=== PATIENT | male | born 1930 | race Caucasian/White ===

== ENCOUNTER 2016-07-18 18:59 | Emergency (ER) | payer MEDICARE, BC, OTHER ==
[2016-07-18] MEDS ORDERED: Lidocaine 2% Jelly 10 ML Urojet MUCMEM ONE (19:32)
--- NOTE | 2016-07-18 19:32 | EDM.PDOC ---
ED HPI RENAL/ - General Chief Complaint: Genitourinary Problem Stated Complaint: CATHEDER NOT WORKING Time Seen by Provider: 07/18/16 20:30 Source of Information: Reports: Patient History Limitations: Reports: No limitations - History of Present Illness INITIAL COMMENTS - FREE TEXT/NARRATIVE: Indwelling catheter with c/o not drianing. Bladder feels full, notes drainage has been thicker past couple of day. no fevers or other symptoms. Lat replaced 2 -3 weeks ago. Patient notes increased catheter pain with last replacement. - Related Data Allergies/ADRs: Allergies Allergy/AdvReac Type Severity Reaction Status Date / Time No Known Allergies Allergy Verified 07/18/16 19:06 Home Meds: Home Meds Calcium Carbonate [Calcium] 500 mg PO DAILY 02/27/16 [History] Enzalutamide [Xtandi] 40 mg PO DAILY 02/27/16 [History] Lutein/Minerals/Vit A,C & E [I-Meggan] 1 tab PO DAILY 02/27/16 [History] Tamsulosin [Flomax] 0.4 mg PO DAILY 02/27/16 [History] Past Medical History HEENT History: Reports: Hard of hearing, Other (see below) Other HEENT History: hearing aid. Genitourinary History: Reports: Prostate disorder, Other (see below) Other Genitourinary History: denise cath. 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 ED EXAM, RENAL/ - Physical Exam Exam: See Below Exam Limited By: No limitations General Appearance: alert, mild distress Eye Exam: bilateral eye: EOMI Ears: normal external exam Nose: normal inspection Throat/Mouth: Normal inspection Head: atraumatic Respiratory/Chest: no respiratory distress Cardiovascular: regular rate, rhythm GI/Abdominal: normal bowel sounds, soft (Male) Exam: Other (no suprapubic tenderness. Indwelling catheter attached to leg bag, small amount concentrated urine in bag, thick cloudy in tubing. no bladder distension.) Extremities: normal inspection Neurological: alert, oriented Psychiatric: normal affect Skin Exam: Warm, Dry, Pallor Course - Vital Signs Last Recorded V/S: Last Vital Signs Temp 97.1 F 07/18/16 20:06 Pulse 94 07/18/16 20:06 Resp 16 07/18/16 20:06 BP 135/71 07/18/16 20:06 Pulse Ox 96 07/18/16 20:06 - Orders/Labs/Meds Meds: Medications Discontinued Medications Generic Name Dose Route Start Last Admin Trade Name Freq PRN Reason Stop Dose Admin Lidocaine HCl 10 ml 07/18/16 19:32 07/18/16 19:47 Xylocaine 2% Jelly MUCMEM 07/18/16 19:33 10 ml ONETIME ONE Administration - Re-Assessments/Exams Free Text/Narrative Re-Assessment/Exam: 07/19/16 04:50 Denise replaced. Immedicate drainage. Bood tinged urine. Minimal sediment. Bladder scan 80-150 ml in bladder. Departure - Departure Time of Disposition: 20:39 Disposition: Home, Self-Care 01 Condition: good Clinical Impression: Retention of urine Denise catheter problem Qualifiers: Encounter type: subsequent encounter Qualified Code(s): T83.9XXD - Unspecified complication of genitourinary prosthetic device, implant and graft, subsequent encounter Referrals: PCP,None [Primary Care Provider] - Forms: ED Department Discharge Additional Instructions: fluids recheck in clinic this week, follwo up sooner if fever, problems with catheter draining
[2016-07-18 20:08] VITALS: BP 135/71
== END 2016-07-18 20:46 | disposition home or self-care (01) ==
LOC: DL.ED 18:59
DX: T83.9XXD Unspecified complication of genitourinary prosthetic device, implant and graft, subsequent encounter (principal); Z79.899 Other long term (current) drug therapy; Z90.49 Acquired absence of other specified parts of digestive tract
CPT/HCPCS: 51701; 99283

== ENCOUNTER 2016-07-29 13:19 | Emergency (ER) | payer MEDICARE, BC, OTHER ==
[2016-07-29] MEDS ORDERED: Lidocaine 2% Jelly 10 ML Urojet ONE (13:53)
[2016-07-29] MEDS ORDERED: Lidocaine 2% Jelly 10 ML Urojet MUCMEM ONE (14:19)
--- NOTE | 2016-07-29 14:24 | EDM.PDOC ---
ED HPI RENAL/ - General Chief Complaint: General Stated Complaint: [id number] Catheter Time Seen by Provider: 07/29/16 14:20 Source of Information: Reports: Patient History Limitations: Reports: No limitations - History of Present Illness INITIAL COMMENTS - FREE TEXT/NARRATIVE: 86 yo white male c/o plugged urinary denise. PMHx. Prostate cancer. Pt. states this is the 4thtime for a plugged denise. Pt. denies fever or chills Symptom Onset Date: 07/28/16 Symptom Onset Time: 18:00 Timing/Duration: Reports: Hour(s): Location: Reports: suprapubic Quality: Reports: fullness Severity: moderate Improves with: Reports: urinating Context: Reports: other (plugged urinary denise due to blood clots) Associated Symptoms: Reports: unable to urinate, blood in urine - Related Data Allergies/ADRs: Allergies Allergy/AdvReac Type Severity Reaction Status Date / Time No Known Allergies Allergy Verified 07/18/16 19:06 Home Meds: Home Meds Calcium Carbonate [Calcium] 500 mg PO DAILY 02/27/16 [History] Enzalutamide [Xtandi] 40 mg PO DAILY 02/27/16 [History] Lutein/Minerals/Vit A,C & E [I-Meggan] 1 tab PO DAILY 02/27/16 [History] Tamsulosin [Flomax] 0.4 mg PO DAILY 02/27/16 [History] Past Medical History HEENT History: Reports: Hard of hearing, Other (see below) Other HEENT History: hearing aid. Genitourinary History: Reports: Prostate disorder, Other (see below) Other Genitourinary History: denise cath. 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 - Infectious Disease History Infectious Disease History: Reports: Chicken pox, Measles, Mumps - Past Surgical History GI Surgical History: Reports: Appendectomy, Cholecystectomy Male Surgical History: Reports: Prostate Biopsy Social & Family History - Family History Family Medical History: Noncontributory - Tobacco Use Smoking Status *Q: Never Smoker - Caffeine Use Caffeine Use: Reports: Coffee - Recreational Drug Use Recreational Drug Use: No ED ROS GENERAL - Review of Systems Review Of Systems: See Below Constitutional: Reports: weakness HEENT: Reports: No symptoms Respiratory: Reports: No Symptoms Cardiovascular: Reports: No symptoms Endocrine: Reports: no symptoms GI/Abdominal: Reports: No symptoms : Reports: other (denise inplaced w/ clots) Skin: Reports: no symptoms Neurological: Reports: No Symptoms Psychiatric: Reports: No symptoms Hematologic/Lymphatic: Reports: no symptoms Immunologic: Reports: no symptoms ED EXAM, RENAL/ - Physical Exam Exam: See Below Exam Limited By: No limitations General Appearance: alert, no apparent distress, cachetic Eye Exam: bilateral eye: PERRL Ears: normal external exam Nose: normal inspection Throat/Mouth: Normal inspection Head: atraumatic Neck: normal inspection Respiratory/Chest: no respiratory distress, lungs clear Cardiovascular: normal peripheral pulses, regular rate, rhythm GI/Abdominal: normal bowel sounds, soft (Male) Exam: Other (urinary denise in place w/ pink colored urine) Back Exam: normal inspection Extremities: normal inspection Neurological: alert, oriented, CN II-XII intact Psychiatric: normal affect, normal mood Skin Exam: Warm, Dry Lymphatic: no adenopathy Course - Orders/Labs/Meds Orders: Active Orders 24 hr Category Date Time Status CULTURE URINE [RM] Stat Lab 07/29/16 14:56 Uncollected Labs: Laboratory Tests 07/29/16 Range/Units 14:09 Urine Color Anitra (YELLOW) Urine Appearance Cloudy (CLEAR) Urine pH >= 9.0 (5.0-9.0) Ur Specific [place] 1.020 (1.005-1.030) Urine Protein >=300 H (NEGATIVE) Urine Glucose (UA) Negative (NEGATIVE) Urine Ketones Negative (NEGATIVE) Urine Occult Blood Large H (NEGATIVE) Urine Nitrite Positive H (NEGATIVE) Urine Bilirubin Negative (NEGATIVE) Urine Urobilinogen 1.0 (0.2-1.0) mg/dL Ur Leukocyte Esterase Small H (NEGATIVE) Urine RBC >100 H /HPF Urine WBC 75-100 H (0-5/HPF) /HPF Ur Epithelial Cells Not seen /HPF Urine Bacteria Many H (0-FEW/HPF) /HPF Meds: Medications Discontinued Medications Generic Name Dose Route Start Last Admin Trade Name Freq PRN Reason Stop Dose Admin Levofloxacin 500 mg 07/29/16 14:56 Levaquin PO 07/29/16 14:57 ONETIME ONE Lidocaine HCl Confirm 07/29/16 13:53 07/29/16 14:47 Xylocaine 2% Jelly Administered 07/29/16 13:54 10 ml Dose Administration 10 ml .ROUTE .STK-MED ONE Lidocaine HCl 10 ml 07/29/16 14:19 07/29/16 14:47 Xylocaine 2% Jelly MUCMEM 07/29/16 14:20 Not Given ONETIME ONE Departure - Departure Time of Disposition: 15:01 Disposition: Home, Self-Care 01 Condition: good Clinical Impression: UTI (urinary tract infection) due to urinary indwelling catheter Qualifiers: Indwelling urinary catheter type: indwelling urethral catheter Encounter type: subsequent encounter Qualified Code(s): T83.511D - Infection and inflammatory reaction due to indwelling urethral catheter, subsequent encounter Denise catheter problem Qualifiers: Encounter type: subsequent encounter Qualified Code(s): T83.9XXD - Unspecified complication of genitourinary prosthetic device, implant and graft, subsequent encounter Clinical Impression: (Ruled Out): UTI (urinary tract infection) Instructions: Urinary Tract Infection, Adult, [id number], Denise Catheter Care , Adult Additional Instructions: Rest Increase intake of Water / Cranberry Juice Take the oral antibiotic as prescribed and complete: Levaquin 500mg QD # 6 F/U w/ PCP for urine recheck in 5 days - My Orders Last 24 Hours: My Active Orders 07/29/16 14:56 CULTURE URINE [RM] Stat - Assessment/Plan Last 24 Hours: My Active Orders 07/29/16 14:56 CULTURE URINE [RM] Stat
[2016-07-29] MEDS ORDERED: Levofloxacin 500 MG Tab PO ONE (14:56)
[2016-07-29 15:52] VITALS: BP 125/73
== END 2016-07-29 15:30 | disposition home or self-care (01) ==
LOC: DL.ED 13:19
DX: T83.511D Infection and inflammatory reaction due to indwelling urethral catheter, subsequent encounter (principal); Z79.899 Other long term (current) drug therapy; Z90.49 Acquired absence of other specified parts of digestive tract
CPT/HCPCS: 51702; 81001; 87086; 99283; A9270

== ENCOUNTER 2016-08-14 08:47 | Inpatient (IN) | payer MEDICARE, BC, OTHER ==
[2016-08-14] MEDS ORDERED: Sodium Chloride 0.9% 1,000 ML IV ONE (09:09)
--- NOTE | 2016-08-14 09:16 | EDM.PDOC ---
ED HPI GENERAL MEDICAL PROBLEM - General Chief Complaint: General Stated Complaint: CATH. PLUGGED Time Seen by Provider: 08/14/16 08:55 Source of Information: Reports: Patient History Limitations: Reports: No limitations - History of Present Illness INITIAL COMMENTS - FREE TEXT/NARRATIVE: This 86 yo male patient reports to the ED with a 2 day history of lower abdominal pain and low urine output. The patient reports he has been having lower abdominal pain and diarrhea over the past 2 days. The patient reports he is currently being treated for prostate cancer by Dr. Melvin. The patient also reports a history of leukemia. The patient's reports the patient has not been feeling well since the last round of chemo. The patient reports he has not been eating much, but has been drinking "plenty" of water. Onset: gradual Onset Date: 08/12/16 Duration: Day(s): (2), Constant, Getting worse Location: Reports: abdomen Quality: Reports: Ache, Dull Severity: moderate Improves with: Reports: None Worsens with: Reports: None Associated Symptoms: Reports: nausea/vomiting Lower Pelvic Pain Score (Numeric/FACES): 2 - Related Data Allergies Allergy/AdvReac Type Severity Reaction Status Date / Time No Known Allergies Allergy Verified 07/29/16 15:52 Home Meds: Home Meds Calcium Carbonate [Calcium] 500 mg PO DAILY 02/27/16 [History] Lutein/Minerals/Vit A,C & E [I-Meggan] 1 tab PO DAILY 02/27/16 [History] Tamsulosin [Flomax] 0.4 mg PO DAILY 02/27/16 [History] Levofloxacin [Levofloxacin] 500 mg PO DAILY 08/14/16 [History] Past Medical History HEENT History: Reports: Hard of hearing, Other (see below) Other HEENT History: hearing aid. Genitourinary History: Reports: Prostate disorder, Other (see below) Other Genitourinary History: denise cath. 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 ED EXAM, GENERAL - Physical Exam Exam: See Below Exam Limited By: No limitations General Appearance: alert, WD/WN, moderate distress Eye Exam: bilateral eye: EOMI, normal inspection, PERRL Ears: normal external exam, hearing grossly normal, other (Bilateral hearing aids) Nose: normal inspection, normal mucosa, no blood Throat/Mouth: Normal inspection, Normal lips, Normal teeth, Normal gums, Normal oropharynx, Normal voice, No airway compromise Head: atraumatic, normocephalic Neck: normal inspection, supple, non-tender, full range of motion Respiratory/Chest: no respiratory distress, lungs clear, normal breath sounds, no accessory muscle use, chest non-tender Cardiovascular: normal peripheral pulses, regular rate, rhythm, no edema, no gallop, no JVD, no murmur, no rub GI/Abdominal: soft, tender (generalized tenderness to the right side (RUQ, RLQ and epigastric)) (Male) Exam: Deferred Rectal (Males) Exam: Deferred Extremities: normal inspection, normal range of motion, non-tender, normal capillary refill, no pedal edema Neurological: alert, oriented, CN II-XII intact, normal cognition, normal gait, no motor/sensory deficits Psychiatric: normal affect, normal mood Skin Exam: Warm, Dry, Intact, Normal color, No rash Lymphatic: no adenopathy Course - Vital Signs Last Recorded V/S: Last Vital Signs Temp 35.3 C 08/14/16 08:55 Pulse 84 08/14/16 08:55 Resp 18 08/14/16 08:55 BP 122/64 08/14/16 08:55 Pulse Ox 98 08/14/16 08:55 - Orders/Labs/Meds Orders: Active Orders 24 hr Category Date Time Status Sodium Chloride 0.9% [Normal Saline] 1,000 ml Med 08/14/16 09:09 Active IV .BOLUS Medication Orders Sodium Chloride (Normal Saline) 1,000 mls @ 250 mls/hr IV .BOLUS ONE Stop: 08/14/16 13:08 Last Admin: 08/14/16 09:31 Dose: 250 mls/hr Labs: Laboratory Tests 08/14/16 08/14/16 08/14/16 Range/Units 09:18 09:18 09:18 WBC 11.6 H (5.0-10.0) 10^3/uL RBC 2.49 L (4.6-6.2) 10^6/uL Hgb 8.6 L (14.0-18.0) g/dL Hct 26.4 L (40.0-54.0) % MCV 106.0 H (80-100) fL MCH 34.5 H (27.0-34.0) pg MCHC 32.6 L (33.0-35.0) g/dL Plt Count 53 L (150-450) 10^3/uL Neut % (Auto) 45.0 (42.2-75.2) % Lymph % (Auto) 52.1 H (20.5-50.1) % [place] % (Auto) 2.7 (2-8) % Eos % (Auto) 0.1 L (1.0-3.0) % Baso % (Auto) 0.1 (0.0-1.0) % Add Manual Diff Yes Neutrophils % (Manual) 32 % Band Neutrophils % 8 % Lymphocytes % (Manual) 56 % Atypical Lymphs % 2 % Monocytes % (Manual) 2 % Tear Drop Cells 2+ moderate [place] Cells 1+ slight Sodium 129 L (135-145) mmol/L Potassium 4.0 (3.6-5.0) mmol/L Chloride 98 L (101-111) mmol/L Carbon Dioxide 23.0 (21.0-31.0) mmol/L Anion Gap 12.0 BUN 14 (7-18) mg/dL Creatinine 1.0 (0.6-1.3) mg/dL Est Cr Clr Drug Dosing 46.78 mL/min Estimated GFR (MDRD) > 60 BUN/Creatinine Ratio 14.00 Glucose 109 H (74-105) mg/dL Calcium 7.5 L (8.4-10.2) mg/dl Magnesium 1.9 (1.8-2.5) mg/dL Total Bilirubin 1.3 H (0.2-1.0) mg/dL AST 31 (10-42) IU/L ALT 12 (10-60) IU/L Alkaline Phosphatase 56 (42-121) IU/L Total Protein 4.4 L (6.7-8.2) g/dl Albumin 2.5 L (3.2-5.5) g/dl Globulin 1.9 Albumin/Globulin Ratio 1.32 Urine Color (YELLOW) Urine Appearance (CLEAR) Urine pH (5.0-9.0) Ur Specific [place] (1.005-1.030) Urine Protein (NEGATIVE) Urine Glucose (UA) (NEGATIVE) Urine Ketones (NEGATIVE) Urine Occult Blood (NEGATIVE) Urine Nitrite (NEGATIVE) Urine Bilirubin (NEGATIVE) Urine Urobilinogen (0.2-1.0) mg/dL Ur Leukocyte Esterase (NEGATIVE) Urine RBC /HPF Urine WBC (0-5/HPF) /HPF Ur Epithelial Cells /HPF Calcium Phosphate Cryst Triple Phos Crystals /HPF Amorphous Sediment (0/HPF) /HPF Urine Bacteria (0-FEW/HPF) /HPF 08/14/16 Range/Units 09:45 WBC (5.0-10.0) 10^3/uL RBC (4.6-6.2) 10^6/uL Hgb (14.0-18.0) g/dL Hct (40.0-54.0) % MCV (80-100) fL MCH (27.0-34.0) pg MCHC (33.0-35.0) g/dL Plt Count (150-450) 10^3/uL Neut % (Auto) (42.2-75.2) % Lymph % (Auto) (20.5-50.1) % [place] % (Auto) (2-8) % Eos % (Auto) (1.0-3.0) % Baso % (Auto) (0.0-1.0) % Add Manual Diff Neutrophils % (Manual) % Band Neutrophils % % Lymphocytes % (Manual) % Atypical Lymphs % % Monocytes % (Manual) % Tear Drop Cells [place] Cells Sodium (135-145) mmol/L Potassium (3.6-5.0) mmol/L Chloride (101-111) mmol/L Carbon Dioxide (21.0-31.0) mmol/L Anion Gap BUN (7-18) mg/dL Creatinine (0.6-1.3) mg/dL Est Cr Clr Drug Dosing mL/min Estimated GFR (MDRD) BUN/Creatinine Ratio Glucose (74-105) mg/dL Calcium (8.4-10.2) mg/dl Magnesium (1.8-2.5) mg/dL Total Bilirubin (0.2-1.0) mg/dL AST (10-42) IU/L ALT (10-60) IU/L Alkaline Phosphatase (42-121) IU/L Total Protein (6.7-8.2) g/dl Albumin (3.2-5.5) g/dl Globulin Albumin/Globulin Ratio Urine Color Brown (YELLOW) Urine Appearance Cloudy (CLEAR) Urine pH >= 9.0 (5.0-9.0) Ur Specific [place] 1.010 (1.005-1.030) Urine Protein >=300 H (NEGATIVE) Urine Glucose (UA) Negative (NEGATIVE) Urine Ketones Negative (NEGATIVE) Urine Occult Blood Large H (NEGATIVE) Urine Nitrite Negative (NEGATIVE) Urine Bilirubin Small H (NEGATIVE) Urine Urobilinogen 1.0 (0.2-1.0) mg/dL Ur Leukocyte Esterase Moderate H (NEGATIVE) Urine RBC 50-75 H /HPF Urine WBC 30-40 H (0-5/HPF) /HPF Ur Epithelial Cells Rare /HPF Calcium Phosphate Cryst Moderate H Triple Phos Crystals Moderate H /HPF Amorphous Sediment Many (0/HPF) /HPF Urine Bacteria Moderate H (0-FEW/HPF) /HPF Meds: Medications Generic Name Dose Route Start Last Admin Trade Name Freq PRN Reason Stop Dose Admin Sodium Chloride 1,000 mls @ 250 mls/hr 08/14/16 09:09 08/14/16 09:31 Normal Saline IV 08/14/16 13:08 250 mls/hr .BOLUS ONE Administration Discontinued Medications Generic Name Dose Route Start Last Admin Trade Name Freq PRN Reason Stop Dose Admin Lidocaine HCl 10 ml 08/14/16 09:24 08/14/16 09:31 Xylocaine 2% Jelly MUCMEM 08/14/16 09:25 10 ml ONETIME ONE Administration Departure - Departure Time of Disposition: 10:24 Disposition: Admitted As Inpatient 67 Condition: fair Clinical Impression: Weakness, Hyponatremia Diarrhea Qualifiers: Diarrhea type: unspecified type Qualified Code(s): R19.7 - Diarrhea, unspecified UTI (urinary tract infection) Qualifiers: Urinary tract infection type: catheter-associated UTI Indwelling urinary catheter type: indwelling urethral catheter Encounter type: initial encounter Qualified Code(s): T83.511A - Infection and inflammatory reaction due to indwelling urethral catheter, initial encounter; N39.0 - Urinary tract infection , site not specified Forms: ED Department Discharge Care Plan Goals: Discussed the history, examination and lab results with Dr. Duvall (Hospitalist with [facility] in [place]). Dr. Duvall accepted the patient for continued evaluation and management as an observation patient. - My Orders Last 24 Hours: My Active Orders 08/14/16 09:09 Sodium Chloride 0.9% [Normal Saline] 1,000 ml IV .BOLUS - Assessment/Plan Last 24 Hours: My Active Orders 08/14/16 09:09 Sodium Chloride 0.9% [Normal Saline] 1,000 ml IV .BOLUS
[2016-08-14] MEDS ORDERED: Lidocaine 2% Jelly 10 ML Urojet MUCMEM ONE (09:24)
[2016-08-14 09:53] LABS: CHLORIDE,CL 98 mmol/L (101-111); SODIUM,NA 129 mmol/L (135-145)
[2016-08-14] MEDS ORDERED: Loperamide 2 MG Cap PO PRN (11:10)
[2016-08-14] MEDS ORDERED: Acetaminophen/HYDROcodone 325-5 MG Tab PO PRN (11:11)
[2016-08-14] MEDS ORDERED: Sodium Chloride 0.9% 10 ML Syringe FLUSH PRN (11:12)
[2016-08-14] MEDS ORDERED: Ondansetron 4 MG/2 ML SDV IVPUSH PRN (11:12)
[2016-08-14] MEDS ORDERED: Acetaminophen 325 MG Tab PO PRN (11:12)
[2016-08-14] MEDS ORDERED: Ondansetron 4 MG Tab.DIS PO PRN (11:12)
[2016-08-14] MEDS ORDERED: Zolpidem 5 MG Tab PO PRN (11:12)
--- NOTE | 2016-08-14 11:23 | PCM.HP ---
H&P History of Present Illness - General Date of Service: 08/14/16 Admit Problem/Dx: Admission Diagnosis/Problem Admission Diagnosis/Problem Hyponatremia Source of Information: Patient, Family - History of Present Illness Initial Comments - Free Text/Narative: the patient is an 86-year-old gentleman with a history of CLL and prostate cancer The patient has been receiving chemotherapy from Dr. Desouza He has been living at home with Last chemotherapy about a week ago He has been complaining of increasing weakness in the past 3 days before admission The weakness has been moderate, progressive this has been associated with diarrhea, decreased appetite. he has been trying to drink of water the patient has chronic indwelling Denise catheter with on and off hematuria, had previous episodes of obstruction. The patient was unable to pass urine through the urinary catheter and came to the emergency room the patient has been started on levofloxacin for a presumed urinary tract infection a few days prior to admission the patient denies fever, no chest pain Lower Pelvic Pain Score (Numeric/FACES): 2 - Related Data Allergies/Adverse Reactions: Allergies Allergy/AdvReac Type Severity Reaction Status Date / Time No Known Allergies Allergy Verified 08/14/16 11:13 Home Medications: Home Meds Calcium Carbonate [Calcium] 500 mg PO DAILY 02/27/16 [History] Lutein/Minerals/Vit A,C & E [I-Meggan] 1 tab PO DAILY 02/27/16 [History] Levofloxacin [Levofloxacin] 500 mg PO DAILY 08/14/16 [History] Past Medical History HEENT History: Reports: Hard of hearing, Other (see below) Other HEENT History: hearing aid. Genitourinary History: Reports: Prostate disorder, Other (see below) Other Genitourinary History: denise cath. 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 - Infectious Disease History Infectious Disease History: Reports: Chicken pox, Measles, Mumps - Past Surgical History GI Surgical History: Reports: Appendectomy, Cholecystectomy Male Surgical History: Reports: Prostate Biopsy Social & Family History - Family History Family Medical History: Noncontributory - Tobacco Use Smoking Status *Q: Never Smoker - Caffeine Use Caffeine Use: Reports: Coffee - Recreational Drug Use Recreational Drug Use: No H&P Review of Systems - Review of Systems: Review Of Systems: See Below General: Denies: fever, chills Pulmonary: Denies: Shortness of Breath, Wheezing Cardiovascular: Denies: chest pain Gastrointestinal: Reports: Diarrhea, Nausea. Denies: Abdominal pain, Black stool, Bloody stool, Hematemesis, Melena Genitourinary: Reports: retention, other (hematuria) Psychiatric: Denies: confusion Neurological: Denies: Dizziness Exam - Exam Exam: See Below - Vital Signs Vital Signs: Last Vital Signs Temp 35.3 C 08/14/16 08:55 Pulse 84 08/14/16 08:55 Resp 18 08/14/16 08:55 BP 122/64 08/14/16 08:55 Pulse Ox 98 08/14/16 08:55 Weight: 61.235 kg - Exam Quality Assessment: urinary catheter. No: supplemental oxygen General: alert, oriented Neck: supple, trachea midline Lungs: Clear to auscultation, Normal respiratory effort Cardiovascular: regular rate, regular rhythm Abdomen: normal bowel sounds, soft Back Exam: normal inspection, full range of motion, NT Extremities: edema (trace on the left side) Skin: warm, dry, intact Neuro Extensive - Mental Status: alert, oriented x3, normal mood/affect, normal cognition Psychiatric: alert, normal affect, normal mood - Patient Data Result Diagrams: 08/14/16 09:18 08/14/16 09:18 *Q Meaningful Use (ADM) - VTE *Q VTE Criteria *Q: - Stroke *Q Stroke Criteria *Q: - AMI *Q AMI Criteria *Q: - Problem List (1) Diarrhea SNOMED Code(s): 50306522 ICD Code: R19.7 - DIARRHEA, UNSPECIFIED Status: Acute Current Visit: Yes Qualifiers: Diarrhea type: unspecified type Qualified Code(s): R19.7 - Diarrhea, unspecified (2) Hyponatremia SNOMED Code(s): 07399650 ICD Code: E87.1 - HYPO-OSMOLALITY AND HYPONATREMIA Status: Acute Current Visit: Yes (3) Denise catheter problem SNOMED Code(s): 208389715 ICD Code: T83.9XXA - UNSP COMPLICATION OF GENITOURINARY PROSTH DEV/GRFT, INIT Status: Acute Current Visit: No Qualifiers: Encounter type: initial encounter Qualified Code(s): T83.9XXA - Unspecified complication of genitourinary prosthetic device, implant and graft, initial encounter Problem List Initiated/Reviewed/Updated: Yes Orders Last 24hrs: Active Orders 24 hr Category Date Time Status Antiembolic Devices [RC] PER UNIT ROUTINE Care 08/14/16 11:13 Ordered Oxygen Therapy [RC] PRN Care 08/14/16 11:12 Ordered Peripheral IV Care [RC] . DIRECTED Care 08/14/16 11:13 Ordered Up With Assistance [RC] ASDIRECTED Care 08/14/16 11:12 Ordered VTE/DVT Education [RC] PER UNIT ROUTINE Care 08/14/16 11:12 Ordered Vital Signs [RC] Q4H Care 08/14/16 11:12 Ordered OT Evaluation and Treatment [CONS] Routine Cons 08/14/16 11:12 Ordered PT Evaluation and Treatment [CONS] Routine Cons 08/14/16 11:12 Ordered Regular Diet [DIET] Diet 08/14/16 Lunch Ordered BASIC METABOLIC PANEL,BMP [CHEM] AM Lab 08/15/16 05:15 Ordered C DIFFICILE TOXIN BY PCR [MREF] Routine Lab 08/14/16 11:14 Uncollected CBC WITH AUTO DIFF [HEME] AM Lab 08/15/16 05:15 Ordered CULTURE URINE [RM] Routine Lab 08/14/16 11:15 Uncollected Acetaminophen [Tylenol] Med 08/14/16 11:12 Ordered 650 mg PO Q4H PRN Acetaminophen/HYDROcodone [[place] 325-5 MG] Med 08/14/16 11:11 Ordered 1 tab PO Q4H PRN Calcium Carbonate [Calcium] Med 08/15/16 09:00 Ordered 500 mg PO DAILY Dexamethasone Med 08/14/16 11:15 Ordered 10 mg PO DAILY Levofloxacin [Levaquin] Med 08/15/16 09:00 Ordered 500 mg PO DAILY Loperamide [Imodium] Med 08/14/16 11:10 Ordered 2 mg PO Q6H PRN Ondansetron [Zofran ODT] Med 08/14/16 11:12 Ordered 4 mg PO Q6H PRN Ondansetron [Zofran] Med 08/14/16 11:12 Ordered 4 mg IVPUSH Q6H PRN Sodium Chloride 0.9% [Normal Saline] 1,000 ml Med 08/14/16 11:15 Ordered IV ASDIRECTED Sodium Chloride 0.9% [Saline Flush] Med 08/14/16 11:12 Ordered 10 ml FLUSH ASDIRECTED PRN Zolpidem [Ambien] Med 08/14/16 11:12 Ordered 5 mg PO BEDTIME PRN Peripheral IV Insertion Adult [OM.PC] Routine Oth 08/14/16 11:12 Ordered Sequential Compression Device [OM.PC] Per Unit Routine Oth 08/14/16 11:12 Ordered Resuscitation Status Routine Resus Stat 08/14/16 11:12 Ordered Medication Orders Acetaminophen (Tylenol) 650 mg PO Q4H PRN PRN Reason: Pain (Mild 1-3)/fever Hydrocodone Bitart/Acetaminophen ([place] 325-5 Mg) 1 tab PO Q4H PRN PRN Reason: Pain Calcium Carbonate/Glycine (Tums) 500 mg PO DAILY SINDI Dexamethasone (Dexamethasone) 10 mg PO DAILY SINDI Sodium Chloride (Normal Saline) 1,000 mls @ 250 mls/hr IV .BOLUS ONE Stop: 08/14/16 13:08 Last Admin: 08/14/16 09:31 Dose: 250 mls/hr Sodium Chloride (Normal Saline) 1,000 mls @ 50 mls/hr IV ASDIRECTED SINDI Levofloxacin (Levaquin) 500 mg PO DAILY@1200 SINDI Loperamide HCl (Imodium) 2 mg PO Q6H PRN PRN Reason: Diarrhea Ondansetron HCl (Zofran Odt) 4 mg PO Q6H PRN PRN Reason: nausea, able to take PO Ondansetron HCl (Zofran) 4 mg IVPUSH Q6H PRN PRN Reason: Nausea/Vomiting Sodium Chloride (Saline Flush) 10 ml FLUSH ASDIRECTED PRN PRN Reason: Keep Vein Open Zolpidem Tartrate (Ambien) 5 mg PO BEDTIME PRN PRN Reason: Sleep Assessment/Plan Comment:: 86-year-old gentleman who presented with weakness, found to have hypo-natremia, Hematuria and obstruction of the Denise catheter 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 Desouza with cabazitaxel Weakness due to chemotherapy, age, hyponatremia We'll start physical and occupational therapy Hyponatremia Due to diarrhea, free water intake Hydrate with normal saline Recheck electrolytes in the morning Diarrhea due to chemotherapy Check C. difficile Start Imodium Leukocytosis The patient received Neulasta injection 08/07/16 The patient received Aranesp injection 08/02/16 I will follow CBC Urinary tract infection associated with indwelling catheter Check urine culture Continue levofloxacin (started 08/11/16) Urinary catheter obstruction due to hematuria Was flushed in the emergency room Monitor Anemia and thrombocytopenia Likely due to chemotherapy We'll monitor his counts Impaired glucose tolerance Diet-controlled DVT prophylaxis will be with SCDs Hold heparin and Lovenox given the thrombocytopenia Monitor platelet counts Discussed CODE STATUS with the patient and Patient wished to be DNR discussed with the ER nurse practitioner, Oscar Cuevas
[2016-08-14] MEDS: Sodium Chloride 0.9% 1,000 ML IV SCH (11:25)
[2016-08-14] MEDS: Dexamethasone 4 MG Tab PO SCH (12:06)
[2016-08-15] MEDS: Sodium Chloride 0.9% 1,000 ML IV SCH (00:50)
[2016-08-15 07:00] LABS: CHLORIDE,CL 104 mmol/L (101-111); SODIUM,NA 129 mmol/L (135-145)
[2016-08-15] MEDS: Dexamethasone 4 MG Tab PO SCH (09:53)
[2016-08-15] MEDS: Calcium Carbonate 500 MG Tab.Chew PO SCH (09:54)
[2016-08-15] MEDS ORDERED: Furosemide 20 MG Tab PO ONE ×2 (10:15→18:00)
--- NOTE | 2016-08-15 10:24 | PCM.PN ---
- General Info Date of Service: 08/15/16 Admission Dx/Problem (Free Text): Admission Diagnosis/Problem Admission Diagnosis/Problem Hyponatremia Subjective Update: feeling better diarrhea stopped has been eating no cp, no sob continues to have moderate hematuria, started prior to admission, has mild associated suprapubic pain - Review of Systems General: Denies: Fever Pulmonary: Denies: shortness of breath Cardiovascular: Denies: Chest Pain, Palpitations Gastrointestinal: Reports: Abdominal pain (suprapubic) Genitourinary: Reports: hematuria - Patient Data Vitals - most recent: Last Vital Signs Temp 37.0 C 08/15/16 07:00 Pulse 72 08/15/16 07:00 Resp 20 08/15/16 07:00 BP 87/48 L 08/15/16 07:00 Pulse Ox 96 08/15/16 07:00 Weight - most recent: 63.049 kg I&O - last 24 hours: Intake & Output 08/14/16 08/15/16 08/15/16 22:59 06:59 14:59 Intake Total 1419 992 Output Total 900 275 Balance 519 717 Lab Results last 24 hrs: Laboratory Results - last 24 hr 08/15/16 08/15/16 Range/Units 06:15 06:15 WBC 15.0 H (5.0-10.0) 10^3/uL RBC 2.10 L (4.6-6.2) 10^6/uL Hgb 7.3 L (14.0-18.0) g/dL Hct 22.5 L (40.0-54.0) % MCV 107.1 H (80-100) fL MCH 34.8 H (27.0-34.0) pg MCHC 32.4 L (33.0-35.0) g/dL Plt Count 45 L* (150-450) 10^3/uL Neut % (Auto) 58.2 (42.2-75.2) % Lymph % (Auto) 39.9 (20.5-50.1) % Price % (Auto) 1.9 L (2-8) % Eos % (Auto) 0.0 L (1.0-3.0) % Baso % (Auto) 0.0 (0.0-1.0) % Sodium 129 L (135-145) mmol/L Potassium 4.0 (3.6-5.0) mmol/L Chloride 104 (101-111) mmol/L Carbon Dioxide 23.0 (21.0-31.0) mmol/L Anion Gap 6.0 BUN 18 (7-18) mg/dL Creatinine 1.0 (0.6-1.3) mg/dL Est Cr Clr Drug Dosing 48.16 mL/min Estimated GFR (MDRD) > 60 Glucose 150 H (74-105) mg/dL Calcium 7.3 L (8.4-10.2) mg/dl Med Orders - Current: Current Medications Acetaminophen (Tylenol) 650 mg PO Q4H PRN PRN Reason: Pain (Mild 1-3)/fever Last Admin: 08/14/16 23:55 Dose: 650 mg Hydrocodone Bitart/Acetaminophen ([place] 325-5 Mg) 1 tab PO Q4H PRN PRN Reason: Pain Last Admin: 08/15/16 05:53 Dose: 1 tab Calcium Carbonate/Glycine (Tums) 500 mg PO DAILY [facility] Last Admin: 08/15/16 09:54 Dose: 500 mg Dexamethasone (Dexamethasone) 10 mg PO DAILY [facility] Last Admin: 08/15/16 09:53 Dose: 10 mg Levofloxacin (Levaquin) 500 mg PO DAILY@1200 SINDI Loperamide HCl (Imodium) 2 mg PO Q6H PRN PRN Reason: Diarrhea Ondansetron HCl (Zofran Odt) 4 mg PO Q6H PRN PRN Reason: nausea, able to take PO Ondansetron HCl (Zofran) 4 mg IVPUSH Q6H PRN PRN Reason: Nausea/Vomiting Sodium Chloride (Saline Flush) 10 ml FLUSH ASDIRECTED PRN PRN Reason: Keep Vein Open Zolpidem Tartrate (Ambien) 5 mg PO BEDTIME PRN PRN Reason: Sleep Discontinued Medications Furosemide (Lasix) 20 mg PO ONETIME ONE Stop: 08/15/16 10:16 Sodium Chloride (Normal Saline) 1,000 mls @ 250 mls/hr IV .BOLUS ONE Stop: 08/14/16 13:08 Last Admin: 08/14/16 09:31 Dose: 250 mls/hr Sodium Chloride (Normal Saline) 1,000 mls @ 50 mls/hr IV ASDIRECTED SINDI Last Admin: 08/15/16 00:50 Dose: 50 mls/hr Lidocaine HCl (Xylocaine 2% Jelly) 10 ml MUCMEM ONETIME ONE Stop: 08/14/16 09:25 Last Admin: 08/14/16 09:31 Dose: 10 ml - Exam General: alert, oriented Neck: supple Lungs: Crackles (b/l) Cardiovascular: Regular Rate, Regular Rhythm Abdomen: bowel sounds present, soft, no tenderness, no distension Extremities: no edema Skin: warm Neurological: no new focal deficit Psy/Mental Status: alert, normal affect, normal mood - Problem List & Annotations (1) Diarrhea SNOMED Code(s): 31024836 Code(s): R19.7 - DIARRHEA, UNSPECIFIED Status: Acute Current Visit: Yes Qualifiers: Diarrhea type: unspecified type Qualified Code(s): R19.7 - Diarrhea, unspecified (2) Hyponatremia SNOMED Code(s): 46596821 Code(s): E87.1 - HYPO-OSMOLALITY AND HYPONATREMIA Status: Acute Current Visit: Yes (3) Hitchcock catheter problem SNOMED Code(s): 094262823 Code(s): T83.9XXA - UNSP COMPLICATION OF GENITOURINARY PROSTH DEV/GRFT, INIT Status: Acute Current Visit: No Qualifiers: Encounter type: subsequent encounter Qualified Code(s): T83.9XXD - Unspecified complication of genitourinary prosthetic device, implant and graft, subsequent encounter - Problem List Review Problem List Initiated/Reviewed/Updated: Yes - My Orders Last 24 Hours: My Active Orders 08/14/16 11:10 Loperamide [Imodium] 2 mg PO Q6H PRN 08/14/16 11:11 Acetaminophen/HYDROcodone [[place] 325-5 MG] 1 tab PO Q4H PRN 08/14/16 11:12 Oxygen Therapy [RC] PRN Up With Assistance [RC] ASDIRECTED VTE/DVT Education [RC] PER UNIT ROUTINE Vital Signs [RC] Q4H OT Evaluation and Treatment [CONS] Routine PT Evaluation and Treatment [CONS] Routine Acetaminophen [Tylenol] 650 mg PO Q4H PRN Ondansetron [Zofran ODT] 4 mg PO Q6H PRN Ondansetron [Zofran] 4 mg IVPUSH Q6H PRN Sodium Chloride 0.9% [Saline Flush] 10 ml FLUSH ASDIRECTED PRN Zolpidem [Ambien] 5 mg PO BEDTIME PRN Peripheral IV Insertion Adult [OM.PC] Routine Sequential Compression Device [OM.PC] Per Unit Routine Resuscitation Status Routine 08/14/16 11:13 Antiembolic Devices [RC] PER UNIT ROUTINE Peripheral IV Care [RC] 09,21 08/14/16 11:15 Dexamethasone 10 mg PO DAILY 08/14/16 14:48 Antiembolic Devices [RC] PER UNIT ROUTINE GEO Hose [Antiembolic Hose] [OM.PC] Routine 08/14/16 18:50 C DIFFICILE TOXIN BY PCR [MREF] Routine 08/14/16 20:10 CULTURE URINE [RM] Routine 08/14/16 Lunch Regular Diet [DIET] 08/15/16 06:15 RED BLOOD CELLS LP [BBK] Routine TYPE AND SCREEN [BBK] Routine 08/15/16 09:00 Calcium Carbonate [Tums] 500 mg PO DAILY 08/15/16 09:45 Blood Transfusion Reflex Orders [OM.PC] Routine Transfuse Red Blood Cells [COMM] Routine 08/15/16 12:00 Levofloxacin [Levaquin] 500 mg PO DAILY@1200 08/15/16 18:00 Furosemide [Lasix] 20 mg PO ONETIME ONE 08/16/16 05:15 BASIC METABOLIC PANEL,BMP [CHEM] AM CBC WITH AUTO DIFF [HEME] AM - Plan Plan:: 86-year-old gentleman who presented with weakness, found to have hypo-natremia, Hematuria and obstruction of the Hitchcock catheter 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 Desouza with cabazitaxel Weakness due to chemotherapy, age, hyponatremia We'll start physical and occupational therapy Hyponatremia Due to diarrhea, free water intake Hydrated with normal saline - stop now diarrhea stopped Recheck electrolytes in the morning Diarrhea due to chemotherapy improved Check C. difficile use prn Imodium Leukocytosis The patient received Neulasta injection 08/07/16 The patient received Aranesp injection 08/02/16 I will follow CBC Urinary tract infection associated with indwelling catheter pending urine culture Continue levofloxacin (started 08/11/16) Urinary catheter obstruction due to hematuria Was flushed in the emergency room Monitor Anemia and thrombocytopenia Likely due to chemotherapy and acute blood loss with hematuria recommended 2 units of PRBC transfusion discussed risks/benefits/alternatives with pt and We'll monitor his counts Impaired glucose tolerance Diet-controlled DVT prophylaxis will be with SCDs Hold heparin and Lovenox given the thrombocytopenia Monitor platelet counts Discussed CODE STATUS with the patient and Patient wished to be DNR/DNI
[2016-08-15] MEDS: Levofloxacin 500 MG Tab PO SCH (13:32)
[2016-08-16 06:52] LABS: CHLORIDE,CL 101 mmol/L (101-111); SODIUM,NA 130 mmol/L (135-145)
[2016-08-16] MEDS: Dexamethasone 4 MG Tab PO SCH (09:02)
[2016-08-16] MEDS: Calcium Carbonate 500 MG Tab.Chew PO SCH (09:04)
--- NOTE | 2016-08-16 10:55 | PCM.PN ---
- General Info Date of Service: 08/16/16 Admission Dx/Problem (Free Text): Admission Diagnosis/Problem Admission Diagnosis/Problem Hyponatremia Subjective Update: feeling better diarrhea stopped, had formed stools has been eating better no cp, no sob hematuria have resolved, in the speech therapist early intervention started to have large urine output , in 2 hours at 1400 cc out No obstruction of the catheter noted Functional Status: Reports: pain controlled - Review of Systems General: Reports: Weakness. Denies: Fever Pulmonary: Reports: shortness of breath (with activity) Cardiovascular: Denies: Chest Pain, Palpitations Gastrointestinal: Reports: Abdominal pain (mild, lower abdomen, chronic) Genitourinary: Denies: frequency Neurological: Denies: Confusion Psychiatric: Denies: confusion - Patient Data Vitals - most recent: Last Vital Signs Temp 36.3 C 08/16/16 07:00 Pulse 64 08/16/16 07:00 Resp 20 08/16/16 07:00 BP 118/58 L 08/16/16 07:00 Pulse Ox 96 08/16/16 07:00 Weight - most recent: 62.686 kg I&O - last 24 hours: Intake & Output 08/15/16 08/16/16 08/16/16 22:59 06:59 14:59 Intake Total 1009 Output Total 900 1900 Balance 109 -1900 Lab Results last 24 hrs: Laboratory Results - last 24 hr 08/15/16 08/16/16 08/16/16 Range/Units 06:15 06:24 06:24 WBC 22.9 H (5.0-10.0) 10^3/uL RBC 3.21 L (4.6-6.2) 10^6/uL Hgb 10.4 L (14.0-18.0) g/dL Hct 31.8 L (40.0-54.0) % MCV 99.1 (80-100) fL MCH 32.4 (27.0-34.0) pg MCHC 32.7 L (33.0-35.0) g/dL Plt Count 50 L (150-450) 10^3/uL Neut % (Auto) 52.8 (42.2-75.2) % Lymph % (Auto) 43.5 (20.5-50.1) % [place] % (Auto) 3.7 (2-8) % Eos % (Auto) 0.0 L (1.0-3.0) % Baso % (Auto) 0.0 (0.0-1.0) % Add Manual Diff Yes Neutrophils % (Manual) 51 % Lymphocytes % (Manual) 47 % Monocytes % (Manual) 2 % Sodium 130 L (135-145) mmol/L Potassium 4.2 (3.6-5.0) mmol/L Chloride 101 (101-111) mmol/L Carbon Dioxide 24.0 (21.0-31.0) mmol/L Anion Gap 9.2 BUN 16 (7-18) mg/dL Creatinine 0.8 (0.6-1.3) mg/dL Est Cr Clr Drug Dosing 59.86 mL/min Estimated GFR (MDRD) > 60 Glucose 134 H (74-105) mg/dL Calcium 7.6 L (8.4-10.2) mg/dl Blood Type O POSITIVE Gel Antibody Screen Negative Crossmatch See Detail Huseyin Results last 24 hrs: Microbiology 08/14/16 18:50 Clostridium difficile (PCR) - Final Stool / Feces - Stool, Liquid 08/14/16 20:10 Urine Culture - Final Urine, Hitchcock Cath (Indwelling) Med Orders - Current: Current Medications Acetaminophen (Tylenol) 650 mg PO Q4H PRN PRN Reason: Pain (Mild 1-3)/fever Last Admin: 08/14/16 23:55 Dose: 650 mg Hydrocodone Bitart/Acetaminophen ([place] 325-5 Mg) 1 tab PO Q4H PRN PRN Reason: Pain Last Admin: 08/15/16 05:53 Dose: 1 tab Calcium Carbonate/Glycine (Tums) 500 mg PO DAILY [facility] Last Admin: 08/16/16 09:04 Dose: 500 mg Dexamethasone (Dexamethasone) 10 mg PO DAILY [facility] Last Admin: 08/16/16 09:02 Dose: 10 mg Levofloxacin (Levaquin) 500 mg PO DAILY@1200 [facility] Last Admin: 08/15/16 13:32 Dose: 500 mg Loperamide HCl (Imodium) 2 mg PO Q6H PRN PRN Reason: Diarrhea Ondansetron HCl (Zofran Odt) 4 mg PO Q6H PRN PRN Reason: nausea, able to take PO Ondansetron HCl (Zofran) 4 mg IVPUSH Q6H PRN PRN Reason: Nausea/Vomiting Sodium Chloride (Saline Flush) 10 ml FLUSH ASDIRECTED PRN PRN Reason: Keep Vein Open Last Admin: 08/15/16 20:34 Dose: 10 ml Zolpidem Tartrate (Ambien) 5 mg PO BEDTIME PRN PRN Reason: Sleep Discontinued Medications Furosemide (Lasix) 20 mg PO ONETIME ONE Stop: 08/15/16 10:16 Last Admin: 08/15/16 11:07 Dose: 20 mg Furosemide (Lasix) 20 mg PO ONETIME ONE Stop: 08/15/16 18:01 Last Admin: 08/15/16 18:32 Dose: 20 mg Sodium Chloride (Normal Saline) 1,000 mls @ 250 mls/hr IV .BOLUS ONE Stop: 08/14/16 13:08 Last Admin: 08/14/16 09:31 Dose: 250 mls/hr Sodium Chloride (Normal Saline) 1,000 mls @ 50 mls/hr IV ASDIRECTED SINDI Last Admin: 08/15/16 00:50 Dose: 50 mls/hr Lidocaine HCl (Xylocaine 2% Jelly) 10 ml MUCMEM ONETIME ONE Stop: 08/14/16 09:25 Last Admin: 08/14/16 09:31 Dose: 10 ml - Exam Quality Assessment: No: supplemental oxygen General: alert, oriented Neck: supple Lungs: Clear to auscultation, Normal respiratory effort. No: Rhonchi Cardiovascular: Regular Rate Abdomen: bowel sounds present, soft, no tenderness, no distension Extremities: edema (1+) Skin: warm, dry, intact Neurological: no new focal deficit Psy/Mental Status: alert, normal affect, normal mood - Problem List & Annotations (1) Diarrhea SNOMED Code(s): 12443426 Code(s): R19.7 - DIARRHEA, UNSPECIFIED Status: Acute Current Visit: Yes Qualifiers: Diarrhea type: unspecified type Qualified Code(s): R19.7 - Diarrhea, unspecified (2) Hyponatremia SNOMED Code(s): 27521014 Code(s): E87.1 - HYPO-OSMOLALITY AND HYPONATREMIA Status: Acute Current Visit: Yes (3) Hitchcock catheter problem SNOMED Code(s): 721222646 Code(s): T83.9XXA - UNSP COMPLICATION OF GENITOURINARY PROSTH DEV/GRFT, INIT Status: Acute Current Visit: No Qualifiers: Encounter type: subsequent encounter Qualified Code(s): T83.9XXD - Unspecified complication of genitourinary prosthetic device, implant and graft, subsequent encounter - Problem List Review Problem List Initiated/Reviewed/Updated: Yes - My Orders Last 24 Hours: My Active Orders 08/15/16 12:00 Levofloxacin [Levaquin] 500 mg PO DAILY@1200 08/17/16 05:15 BASIC METABOLIC PANEL,BMP [CHEM] AM CBC WITH AUTO DIFF [HEME] AM - Plan Plan:: 86-year-old gentleman who presented with weakness, found to have hypo-natremia, Hematuria and obstruction of the Hitchcock catheter 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 Desouza with cabazitaxel Weakness due to chemotherapy, age, hyponatremia appears improving continue physical and occupational therapy Hyponatremia Due to diarrhea, free water intake Hydrated with normal saline - stopped by now diarrhea stopped received diuretics with the blood transfusion Has polyuria now, we'll monitor urine output, Recheck electrolytes in the morning Diarrhea due to chemotherapy improved negative C. difficile from stool use prn Imodium Leukocytosis The patient received Neulasta injection 08/07/16 The patient received Aranesp injection 08/02/16 this is likely due to the Neulasta and less likely due to the infection I will follow CBC Urinary tract infection associated with indwelling catheter urine culture: contaminant only Continue levofloxacin (started 08/11/16) Urinary catheter obstruction due to hematuria Was flushed in the emergency room hematuria has improved and resolved Monitor Anemia and thrombocytopenia Likely due to chemotherapy and acute blood loss with hematuria received 2 units of PRBC transfusion on 15 of August hemoglobin is improved We'll monitor his counts Impaired glucose tolerance Diet-controlled DVT prophylaxis will be with SCDs Hold heparin and Lovenox given the thrombocytopenia Monitor platelet counts Discussed CODE STATUS with the patient and Patient wished to be DNR/DNI due to hyponatremia, polyuria, leukocytosis and follow electrolytes closely the patient will need further hospital stay Will change status to inpatient discussed with family, physical therapist
[2016-08-16] MEDS: Levofloxacin 500 MG Tab PO SCH (12:51)
[2016-08-17 06:47] LABS: CHLORIDE,CL 102 mmol/L (101-111); SODIUM,NA 131 mmol/L (135-145)
[2016-08-17] MEDS: Calcium Carbonate 500 MG Tab.Chew PO SCH (08:33)
[2016-08-17] MEDS: Dexamethasone 4 MG Tab PO SCH (08:33)
[2016-08-17 11:42] VITALS: BP 97/59
[2016-08-17] MEDS: Levofloxacin 500 MG Tab PO SCH (12:21)
--- NOTE | 2016-08-18 07:19 | DISCH ---
PATIENT ADMITTED ON 08/14/2016 ADMITTING DIAGNOSES: 1. Gross hematuria. 2. Chronic indwelling Hitchcock catheter. 3. Possible urinary tract infection. 4. Anemia due to acute blood loss from gross hematuria. 5. Diarrhea. 6. Acute hyponatremia secondary to diarrhea, hypovolemic hyponatremia. 7. Leukocytosis. 8. Anemia and thrombocytopenia. DISCHARGE DIAGNOSES: 1. Anemia and thrombocytopenia, chemotherapy related. 2. Acute blood-loss anemia secondary to gross hematuria. 3. Urinary tract infection secondary to chronic indwelling Hitchcock catheter placement. 4. Urinary tract obstruction secondary to hematuria and obstructing the catheter. 5. Acute hyponatremia, resolved. 6. Anemia requiring blood transfusions on this admission. 7. Acute hyponatremia secondary to hypovolemic hyponatremia from diarrhea, resolved with IV normal saline. 8. History of prostate cancer, receiving chemotherapy. HISTORY OF PRESENT ILLNESS: Mr. Loyd Galindo is an 86-year-old male, with medical history significant for CLL and prostate cancer, receiving chemotherapy, was living at home. The patient has a chronic indwelling Hitchcock catheter, last chemotherapy was 1 week prior to this admission, was complaining of increasing weakness in the past 3 days and was complaining of diarrhea and decreased appetite. On admission, the patient was noted to have obstruction on the Hitchcock catheter secondary to gross hematuria, requiring changing of the Hitchcock catheter and flushing of the bladder. The patient was also noted to have mild leukocytosis, was empirically started on Levaquin for possible urinary tract infection secondary to chronic indwelling Hitchcock catheter. The patient was noted to be anemic at the time of admission with a hemoglobin of 8.6 and dropping down to 7.3, requiring blood transfusion. His hemoglobin improved to 10.1 at the time of discharge. The patient continued to have thrombocytopenia secondary to chemotherapy. He was also noted to have acute hyponatremia with sodium of 129, which improved to 131 at the time of discharge. This is mainly hypovolemic hyponatremia from diarrhea. His diarrhea got resolved. He is able to ambulate well without any difficulty. His hematuria got improved. The patient continues to have bladder spasms, so we did prescribe him Pyridium for bladder spasm. The patient remained hemodynamically stable on this admission. He is discharged home in stable condition. He is prescribed Percocet for better pain control and Pyridium for better pain control. We will continue with 2 more pills of Levaquin to complete a course of antibiotics. He is discharged home in stable condition. He is advised to follow up with his primary care physician in next 1 week of time and to follow with [facility] as scheduled. PHYSICAL EXAMINATION: Vital Signs: On the day of discharge, vitals; temperature of 97.6, pulse of 80, blood pressure of 97/59, saturating at 95% on room air. General Appearance: The patient is well oriented to time, place, and person. Follows commands spontaneously. Cardiovascular System: S1, S2 heard with normal intensity. No gallops. Respiratory System: Clear to auscultation bilaterally. No wheeze. No crepitations. Abdomen: Soft. Bowel sounds positive. Nontender. No rigidity. Extremities: No edema in bilateral lower extremities. DISCHARGE MEDICATIONS: Include: 1. Percocet 5/325 mg one tablet every 4 hours as needed for severe pain, dispensed #20. 2. Calcium carbonate 500 mg daily. 3. Levaquin 500 mg daily for 2 pills. 4. Lutein, mineral, multivitamin tablet once daily. 5. Pyridium 200 mg three times a day for 2 days. CONDITION ON ADMISSION: Poor. CONDITION ON DISCHARGE: Stable. ACTIVITY: As tolerated. DIET: Regular diet. FOLLOWUP: 1. Follow with primary care physician in next 1 week of time. 2. Follow up with Cancer Center as scheduled. I spent over 35 minutes of time in evaluating and treating this patient and explaining discharge instructions to the patient and family members. The patient will need home health care, referrals in the chart. [facility] /[id number]
== END 2016-08-17 13:37 | disposition home or self-care (01) | DRG 641 ==
LOC: DL.ED 08:47 → DL.MS 10:28 → DL.ED 10:46 → DL.MS 11:09 → OBSVTOIN 08-16 10:46
PROVIDERS: ADMIT Internal Medicine; ATTEND Internal Medicine
PROC: 30253N1 (ICD-10-PCS; principal; 2016-08-16)
DX: E87.1 Hypo-osmolality and hyponatremia (principal); T83.511A Infection and inflammatory reaction due to indwelling urethral catheter, initial encounter; N39.0 Urinary tract infection, site not specified; D62 Acute posthemorrhagic anemia; C95.90 Leukemia, unspecified not having achieved remission; R19.7 Diarrhea, unspecified; C61 Malignant neoplasm of prostate; Z66 Do not resuscitate; R31.9 Hematuria, unspecified
CPT/HCPCS: 36415 ×3; 36430; 80048 ×2; 80053; 81001; 83735; 85025 ×3; 86850; 86900; 86901; 86920; 86922; 87086; 87493; 96360; 97165; 99284; A9270 ×6; J7030 ×3; J7050; J8540 ×3; P9016 ×2; 96361; 97161-GP; G0378

== ENCOUNTER 2016-09-01 22:19 | Emergency (ER) | payer MEDICARE, BC, OTHER ==
[2016-09-02 01:00] VITALS: BP 83/47
[2016-09-02] MEDS ORDERED: Sodium Chloride 0.9% 1,000 ML IV ONE (02:25)
--- NOTE | 2016-09-02 02:31 | EDM.PDOC ---
<Lawrence Corbin Irene - Last Filed: 09/02/16 07:21> ED HPI GI/ABDOMINAL - General Chief Complaint: Gastrointestinal Problem Stated Complaint: diareea Time Seen by Provider: 09/02/16 02:15 Source of Information: Reports: Patient History Limitations: Reports: No limitations - History of Present Illness INITIAL COMMENTS - FREE TEXT/NARRATIVE: This 86 yo male patient reports to the ED with a 2 week history of loose bowel movements and intermittent lower abdominal pains. The patient reports he has been given a dose of Imodium today with no changes in his symptoms. The patient reports his "ass is on fire" from the frequent loose bowel movements. The patient has a history of prostate cancer (thus the urinary catheter) and frequent UTI's. The patient reports he is due to have his catheter replaced on September 13. Symptom Onset Date: 08/19/16 Timing/Duration: Reports: Constant Location: generalized (lower abdominal cramping) Quality: Reports: ache, cramping Severity: severe Worsens with: Reports: defecating, palpation Associated Symptoms: Reports: diarrhea - Related Data Allergies/ADRs: Allergies Allergy/AdvReac Type Severity Reaction Status Date / Time No Known Allergies Allergy Verified 09/02/16 01:00 Home Meds: Home Meds Calcium Carbonate [Calcium] 500 mg PO DAILY 02/27/16 [History] Lutein/Minerals/Vit A,C & E [I-Meggan] 1 tab PO DAILY 02/27/16 [History] Dexamethasone [Dexamethasone] 10 mg PO DAILY 09/02/16 [History] Levothyroxine Sodium [Levothyroxine Sodium] 1 tab PO DAILY 09/02/16 [History] Oxybutynin Chloride [Oxybutynin Chloride] 1 tab PO DAILY 09/02/16 [History] Sodium Chloride 0.9% [Sodium Chloride 0.9%] 09/02/16 [History] Past Medical History HEENT History: Reports: Hard of hearing, Other (see below) Other HEENT History: hearing aid. Gastrointestinal History: Reports: Chronic diarrhea Genitourinary History: Reports: Prostate disorder, Other (see below) Other Genitourinary History: denise cath. 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 - Infectious Disease History Infectious Disease History: Reports: Chicken pox, Measles, Mumps - Past Surgical History GI Surgical History: Reports: Appendectomy, Cholecystectomy Male Surgical History: Reports: Prostate Biopsy Social & Family History - Family History Family Medical History: Noncontributory - Tobacco Use Smoking Status *Q: Never Smoker Second Hand Smoke Exposure: No - Caffeine Use Caffeine Use: Reports: Coffee Other Caffeine Use: occasional - Recreational Drug Use Recreational Drug Use: No ED ROS GENERAL - Review of Systems Review Of Systems: ROS reveals no pertinent complaints other than HPI. ED EXAM, GI/ABD - Physical Exam Exam: See Below Exam Limited By: No limitations General Appearance: alert, WD/WN, moderate distress Eyes: bilateral: normal appearance, EOMI Ears: normal external exam, normal canal, hearing grossly normal, normal TMs Nose: normal inspection, normal mucosa, no blood Throat/Mouth: Normal inspection, Normal lips, Normal teeth, Normal gums, Normal oropharynx, Normal voice, No airway compromise Head: atraumatic, normocephalic Respiratory/Chest: no respiratory distress, lungs clear, normal breath sounds, no accessory muscle use, chest non-tender Cardiovascular: normal peripheral pulses GI/Abdominal: normal bowel sounds, soft, no organomegaly, no distention, no abnormal bruit, no mass, tenderness (lower abdomen) (Male) Exam: Deferred Rectal (Males) Exam: Deferred Extremities: normal inspection, normal range of motion, non-tender, normal capillary refill, no pedal edema Neurological: alert, oriented, CN II-XII intact, normal cognition, normal gait, normal reflexes, no motor/sensory deficits Psychiatric: normal affect, normal mood Skin Exam: Warm, Dry, Intact, Normal color, No rash Lymphatic: no adenopathy Course - Vital Signs Last Recorded V/S: Last Vital Signs Temp 36.9 C 09/02/16 00:30 Pulse 107 H 09/02/16 00:30 Resp 20 09/02/16 00:30 BP 83/47 L 09/02/16 00:30 Pulse Ox 91 L 09/02/16 00:30 - Orders/Labs/Meds Orders: Active Orders 24 hr Category Date Time Status CULTURE URINE [RM] Stat Lab 09/02/16 07:38 Ordered UA W/MICROSCOPIC [URIN] Stat Lab 09/02/16 07:38 Ordered Sodium Chloride 0.9% [Normal Saline] 1,000 ml Med 09/02/16 02:25 Active IV .BOLUS Medication Orders Sodium Chloride (Normal Saline) 1,000 mls @ 125 mls/hr IV .BOLUS ONE Stop: 09/02/16 10:24 Last Admin: 09/02/16 02:44 Dose: 125 mls/hr Labs: Laboratory Tests 09/02/16 09/02/16 Range/Units 02:35 02:35 WBC 2.4 L (5.0-10.0) 10^3/uL RBC 2.55 L (4.6-6.2) 10^6/uL Hgb 8.2 L (14.0-18.0) g/dL Hct 25.2 L (40.0-54.0) % MCV 98.8 (80-100) fL MCH 32.2 (27.0-34.0) pg MCHC 32.5 L (33.0-35.0) g/dL Plt Count 24 L* (150-450) 10^3/uL Neut % (Auto) 7.9 L (42.2-75.2) % Lymph % (Auto) 88.8 H (20.5-50.1) % [place] % (Auto) 3.3 (2-8) % Eos % (Auto) 0.0 L (1.0-3.0) % Baso % (Auto) 0.0 (0.0-1.0) % Add Manual Diff Yes Neutrophils % (Manual) 0 % Band Neutrophils % 0 % Lymphocytes % (Manual) 95 % Atypical Lymphs % 5 % Monocytes % (Manual) 0 % Eosinophils % (Manual) 0 % Platelet Estimate Decreased Hypochromasia 1+ slight Poikilocytosis 1+ slight Sodium 134 L (135-145) mmol/L Potassium 4.8 (3.6-5.0) mmol/L Chloride 108 (101-111) mmol/L Carbon Dioxide 21.0 (21.0-31.0) mmol/L Anion Gap 9.8 BUN 24 H (7-18) mg/dL Creatinine 1.0 (0.6-1.3) mg/dL Est Cr Clr Drug Dosing 48.74 mL/min Estimated GFR (MDRD) > 60 BUN/Creatinine Ratio 24.00 Glucose 78 (74-105) mg/dL Calcium 7.3 L (8.4-10.2) mg/dl Total Bilirubin 1.9 H (0.2-1.0) mg/dL AST 37 (10-42) IU/L ALT 15 (10-60) IU/L Alkaline Phosphatase 55 (42-121) IU/L Total Protein 4.4 L (6.7-8.2) g/dl Albumin 2.4 L (3.2-5.5) g/dl Globulin 2.0 Albumin/Globulin Ratio 1.20 Meds: Medications Generic Name Dose Route Start Last Admin Trade Name Freq PRN Reason Stop Dose Admin Sodium Chloride 1,000 mls @ 125 mls/hr 09/02/16 02:25 09/02/16 02:44 Normal Saline IV 09/02/16 10:24 125 mls/hr .BOLUS ONE Administration Discontinued Medications Generic Name Dose Route Start Last Admin Trade Name Freq PRN Reason Stop Dose Admin Lidocaine HCl 10 ml 09/02/16 07:15 09/02/16 07:19 Xylocaine 2% Jelly MUCMEM 09/02/16 07:16 10 ml ONETIME ONE Administration - Re-Assessments/Exams Free Text/Narrative Re-Assessment/Exam: 09/02/16 07:14 An initial call was placed to [facility] in [place] spoke with Dr. Abreu ( Urology). Dr. Abreu advised several procedures done by nursing staff, then removal of the catheter, and replacement with the biggest Caude. Dr. Abreu advised if there were difficulties with placing the catheter, then the patient should be transferred to the [facility] ED for further evaluation and treatment. Departure - Departure Disposition: Home, Self-Care 01 Clinical Impression: Indwelling Denise catheter calcification Qualifiers: Encounter type: initial encounter Qualified Code(s): T83.89XA - Other specified complication of genitourinary prosthetic devices, implants and grafts , initial encounter Obstruction of Denise catheter Qualifiers: Encounter type: initial encounter Qualified Code(s): T83.091A - Other mechanical complication of indwelling urethral catheter, initial encounter Instructions: Denise Catheter Care, Adult Forms: ED Department Discharge Additional Instructions: Follow up with you urologist next week. Return to ER if any further problems. <Sly Skelton - Last Filed: 09/02/16 07:52> Course - Re-Assessments/Exams Free Text/Narrative Re-Assessment/Exam: 09/02/16 07:48 Catheter replaced by RN with return of luiz urine. Pt will be D/C'd home to F/ U in urology clinic next week. Departure - Departure Time of Disposition: 07:50 Condition: fair
[2016-09-02 03:03] LABS: CHLORIDE,CL 108 mmol/L (101-111); SODIUM,NA 134 mmol/L (135-145)
[2016-09-02] MEDS ORDERED: Lidocaine 2% Jelly 10 ML Urojet MUCMEM ONE (07:15)
== END 2016-09-02 07:57 | disposition home or self-care (01) ==
LOC: DL.ED 22:19
DX: T83.091A Other mechanical complication of indwelling urethral catheter, initial encounter (principal); T83.89XA Other specified complication of genitourinary prosthetic devices, implants and grafts, initial encounter; Z79.899 Other long term (current) drug therapy; Z90.49 Acquired absence of other specified parts of digestive tract
CPT/HCPCS: 36415; 51702; 80053; 81001; 85025; 87086; 96360; 96361; 99284; J7030; 87088; 99282

== ENCOUNTER 2016-09-08 13:21 | Emergency (ER) | payer MEDICARE, BC, OTHER ==
--- NOTE | 2016-09-08 13:54 | EDM.PDOC ---
ED HPI GENERAL MEDICAL PROBLEM - General Chief Complaint: Abdominal Pain Stated Complaint: AMB Time Seen by Provider: 09/08/16 13:54 Source of Information: Reports: Patient, EMS Notes Reviewed, RN History Limitations: Reports: No Limitations - History of Present Illness INITIAL COMMENTS - FREE TEXT/NARRATIVE: " I can't really breathe. My orneriness is coming up. " Onset: Other ( He says that he has had a cough for a couple weeks.) Duration: Getting Worse Location: Reports: Chest Severity: Severe Improves with: Reports: None Worsens with: Reports: Movement Associated Symptoms: Reports: Cough, Shortness of Breath. Denies: Chest Pain Abdomen Pain Score (Numeric/FACES): 4 - Related Data Allergies Allergy/AdvReac Type Severity Reaction Status Date / Time No Known Allergies Allergy Verified 09/02/16 01:00 Home Meds: Home Meds Calcium Carbonate [Calcium] 500 mg PO DAILY 02/27/16 [History] Lutein/Minerals/Vit A,C & E [I-Meggan] 1 tab PO DAILY 02/27/16 [History] Dexamethasone [Dexamethasone] 2.5 tab PO DAILY 09/02/16 [History] Levothyroxine Sodium [Levothyroxine Sodium] 1 tab PO DAILY 09/02/16 [History] Atropine/Diphenoxylate [Lomotil 0.025-2.5 MG] 1 tab PO QID PRN 09/08/16 [History ] Hydrocodone/Acetaminophen [Hydrocodon-Acetaminophen 5-325] 1 tab PO Q4H PRN 04/15 [History] Prochlorperazine Maleate [Compazine] 10 mg PO Q6H PRN 09/08/16 [History] Past Medical History HEENT History: Reports: Hard of Hearing, Other (See Below) Other HEENT History: hearing aid. Gastrointestinal History: Reports: Chronic Diarrhea Genitourinary History: Reports: Prostate Disorder, Other (See Below) Other Genitourinary History: denise cath. 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 - Infectious Disease History Infectious Disease History: Reports: Chicken Pox, Measles, Mumps - Past Surgical History GI Surgical History: Reports: Appendectomy, Cholecystectomy Male Surgical History: Reports: Prostate Biopsy Social & Family History - Family History Family Medical History: Noncontributory - Tobacco Use Smoking Status *Q: Never Smoker Second Hand Smoke Exposure: No - Caffeine Use Caffeine Use: Reports: Coffee Other Caffeine Use: occasional - Recreational Drug Use Recreational Drug Use: No ED ROS GENERAL - Review of Systems Review Of Systems: ROS reveals no pertinent complaints other than HPI. Constitutional: Reports: No Symptoms ED EXAM, GENERAL - Physical Exam Exam: See Below Exam Limited By: No Limitations General Appearance: Alert, Mild Distress Eye Exam: Bilateral Eye: Normal Inspection Ears: Normal External Exam, Normal Canal, Hearing Grossly Normal, Normal TMs Nose: Normal Inspection, Normal Mucosa, No Blood Throat/Mouth: Other (lips and oral mucous membranes very dry. Nearly all teeth missing or in poor condition) Head: Atraumatic, Normocephalic Neck: Supple, Non-Tender, Limited Range of Motion Respiratory/Chest: Chest Non-Tender, Decreased Breath Sounds, Crackles. No: No Accessory Muscle Use, Wheezing, Pleural Rub Cardiovascular: Regular Rate, Rhythm, No Edema Peripheral Pulses: 1+: Posterior Tibial (L), Posterior Tibial (R), Dorsalis Pedis (L), Dorsalis Pedis (R), 2+: Carotid (L), Carotid (R), Radial (L), Radial (R) GI/Abdominal: Normal Bowel Sounds, Soft, Non-Tender, No Distention (Male) Exam: Other (Denise in place) Back Exam: Normal Inspection. No: CVA Tenderness (L), CVA Tenderness (R) Extremities: Normal Inspection, Non-Tender Neurological: Alert Psychiatric: Normal Affect, Normal Mood Skin Exam: Warm, Dry, No Rash (skin diffusely dry and flaking ) Lymphatic: No Adenopathy Course - Vital Signs Last Recorded V/S: Last Vital Signs Temp 96.6 F 09/08/16 13:06 Pulse 76 09/08/16 14:19 Resp 20 09/08/16 14:19 BP 125/57 L 09/08/16 14:19 Pulse Ox 93 L 09/08/16 14:19 - Orders/Labs/Meds Orders: Active Orders 24 hr Category Date Time Status CULTURE BLOOD [BC] Stat Lab 09/08/16 14:34 Received CULTURE BLOOD [BC] Stat Lab 09/08/16 14:40 Results LACTIC ACID [CHEM] Stat Lab 09/08/16 14:40 Received UA W/MICROSCOPIC [URIN] Stat Lab 09/08/16 13:24 Ordered Levofloxacin/Dextrose 5%-Water [Levaquin in D5W 500 MG/ Med 09/08/16 14:29 Active 100 ML] 500 mg Premix Bag 1 bag IV ONETIME Blood Culture x2 Reflex Set [OM.PC] Stat Oth 09/08/16 14:26 Ordered Medication Orders Levofloxacin/Dextrose 500 mg/ (Premix) 100 mls @ 100 mls/hr IV ONETIME ONE Stop: 09/08/16 15:28 Last Admin: 09/08/16 14:45 Dose: 100 mls/hr Labs: Laboratory Tests 09/08/16 09/08/16 Range/Units 13:35 13:35 WBC 11.4 H (5.0-10.0) 10^3/uL RBC 2.09 L (4.6-6.2) 10^6/uL Hgb 6.8 L* (14.0-18.0) g/dL Hct 20.3 L* (40.0-54.0) % MCV 97.1 (80-100) fL MCH 32.5 (27.0-34.0) pg MCHC 33.5 (33.0-35.0) g/dL Plt Count 19 L* (150-450) 10^3/uL Neut % (Auto) 79.0 H (42.2-75.2) % Lymph % (Auto) 15.2 L (20.5-50.1) % [place] % (Auto) 5.7 (2-8) % Eos % (Auto) 0.0 L (1.0-3.0) % Baso % (Auto) 0.1 (0.0-1.0) % Add Manual Diff Yes Neutrophils % (Manual) 81 % Band Neutrophils % 3 % Lymphocytes % (Manual) 13 % Monocytes % (Manual) 3 % Hypochromasia 1+ slight Ovalocytes 1+ slight Sodium 132 L (135-145) mmol/L Potassium 4.0 (3.6-5.0) mmol/L Chloride 105 (101-111) mmol/L Carbon Dioxide 20.0 L (21.0-31.0) mmol/L Anion Gap 11.0 BUN 53 H (7-18) mg/dL Creatinine 4.1 H (0.6-1.3) mg/dL Est Cr Clr Drug Dosing 12.32 mL/min Estimated GFR (MDRD) 14 BUN/Creatinine Ratio 12.92 Glucose 111 H (74-105) mg/dL Calcium 7.0 L (8.4-10.2) mg/dl Total Bilirubin 1.6 H (0.2-1.0) mg/dL AST 33 (10-42) IU/L ALT 16 (10-60) IU/L Alkaline Phosphatase 97 (42-121) IU/L B-Natriuretic Peptide 259 H (0-100) pg/ml Total Protein 3.6 L (6.7-8.2) g/dl Albumin 1.8 L (3.2-5.5) g/dl Globulin 1.8 Albumin/Globulin Ratio 1.00 Meds: Medications Generic Name Dose Route Start Last Admin Trade Name Freq PRN Reason Stop Dose Admin Levofloxacin/Dextrose 500 mg/ 100 mls @ 100 mls/hr 09/08/16 14:29 09/08/16 14 :45 Premix IV 09/08/16 15:28 100 mls/hr ONETIME ONE Administration Departure - Departure Time of Disposition: 15:12 Disposition: DC/Tfer to Acute Hospital 02 Condition: critical Clinical Impression: CHF (congestive heart failure), Pneumonia - Discharge Information Forms: ED Department Discharge, Interfacility Transfer EMTALA - My Orders Last 24 Hours: My Active Orders 09/08/16 13:24 UA W/MICROSCOPIC [URIN] Stat 09/08/16 14:26 Blood Culture x2 Reflex Set [OM.PC] Stat 09/08/16 14:29 Levofloxacin/Dextrose 5%-Water [Levaquin in D5W 500 MG/100 ML] 500 mg Premix Bag 1 bag IV ONETIME 09/08/16 14:34 CULTURE BLOOD [BC] Stat 09/08/16 14:40 CULTURE BLOOD [BC] Stat LACTIC ACID [CHEM] Stat - Assessment/Plan Last 24 Hours: My Active Orders 09/08/16 13:24 UA W/MICROSCOPIC [URIN] Stat 09/08/16 14:26 Blood Culture x2 Reflex Set [OM.PC] Stat 09/08/16 14:29 Levofloxacin/Dextrose 5%-Water [Levaquin in D5W 500 MG/100 ML] 500 mg Premix Bag 1 bag IV ONETIME 09/08/16 14:34 CULTURE BLOOD [BC] Stat 09/08/16 14:40 CULTURE BLOOD [BC] Stat LACTIC ACID [CHEM] Stat
--- NOTE | 2016-09-08 14:01 | CR ---
Clinical history: 86-year-old male lung "crackles". Interpretation: Markedly abnormal. Dense bibasilar subpulmonic pleural effusions (right greater than left) and bilateral pulmonary veno us congestion new since CT scan chest 30 March 2015. Cardiac silhouette remains within normal limits but cannot exclude underlying bibasilar infiltrate, atelectasis or infarct. Clinical? EKG? BNP? D dimer?
[2016-09-08 14:20] VITALS: BP 125/57
[2016-09-08] MEDS ORDERED: Levofloxacin/Dextrose 5%-Water 500 MG in Premix Bag 1 BAG IV ONE (14:29)
== END 2016-09-08 15:22 ==
LOC: DL.ED 13:21
DX: I50.9 Heart failure, unspecified (principal); J18.9 Pneumonia, unspecified organism; Z79.899 Other long term (current) drug therapy; Z90.49 Acquired absence of other specified parts of digestive tract; Z79.52 Long term (current) use of systemic steroids
CPT/HCPCS: 36415; 71010; 80053; 83605; 83880; 85025; 87040; 96365; 99284; J1956; 87077